=== PATIENT | male | born 2000 | race Caucasian/White ===

== ENCOUNTER 2023-03-23 20:11 | Emergency (ER) | payer SELFPAY ==
[~2023-03-23] VITALS: Ht 185.4 cm; Wt 145.5 kg
[2023-03-23 20:18] VITALS: TEMP 97.8
[2023-03-23 21:38] VITALS: BP 143/91; PULSE 66
== END 2023-03-23 21:40 | disposition home or self-care (01) ==
LOC: COL.ER 20:11 → EDBD 20:14 → COL.ER 20:14
DX: S90.32XA Contusion of left foot, initial encounter (principal); F17.210 Nicotine dependence, cigarettes, uncomplicated; Z28.310 Unvaccinated for COVID-19; W20.8XXA Other cause of strike by thrown, projected or falling object, initial encounter; Y92.59 Other trade areas as the place of occurrence of the external cause; Y99.0 Civilian activity done for income or pay